=== PATIENT | male | born 1975 | race African-American/Black ===

== ENCOUNTER 2020-11-04 01:28 | Emergency (ER) | payer OTHER ==
[~2020-11-04 01:28] MED LIST: CARAFATE1 GM PO; ISOSORBIDE DINI10 MG PO; MAG-OXIDE 400M400 MG PO; MIRALAX17 GM PO; MYCOPHENOLATE500 MG PO; NYSTATIN SUSP1 ML/ML SSP; ONDANSETRON ODT4 MG PO; PRAVACHOL20 MG PO; PREDNISONE5 MG PO; PRILOSEC20 MG PO; PROTONIX 40MG T40 MG PO; ROBAXIN500 MG PO; SULFAMETHOXAZO1 EACH PO; TACROLIMUS PO; VALGANCICLOVIR450 MG PO
== END 2020-11-04 04:20 | disposition home or self-care (01) ==
LOC: FER 01:28
DX: S00.83XA Contusion of other part of head, initial encounter (principal); E11.9 Type 2 diabetes mellitus without complications; I10 Essential (primary) hypertension; Z94.1 Heart transplant status; Z88.0 Allergy status to penicillin; W51.XXXA Accidental striking against or bumped into by another person, initial encounter; Y92.89 Other specified places as the place of occurrence of the external cause
CPT/HCPCS: 70486; J2270; J2405

== ENCOUNTER 2021-08-17 10:06 | Emergency (ER) | payer OTHER ==
[2021-08-17 11:36] LABS: BILIRUBIN NEGATIVE (NEGATIVE); BLOOD TRACE-INTACT Ery/uL (NEGATIVE); CLARITY CLEAR (CLEAR); COLOR YELLOW (YELLOW); GLUCOSE (U) NORMAL (NORMAL); LEUKOCYTES NEGATIVE Leu/uL (NEGATIVE); NITRITE NEGATIVE (NEGATIVE); PROTEIN 3+ mg/dL (NEGATIVE); SPECIFIC GRAVITY >=1.030 (1.001-1.030); UROBILINOGEN 0.2 mg/dL (0.2-1.0)
[2021-08-17 12:08] LABS: BACTERIA TRACE; URINARY RBC RARE; URINARY WBC RARE
[2021-08-17] MEDS ORDERED: NORCO 5-325 TA1 EACH PO (13:31)
== END 2021-08-17 14:00 | disposition home or self-care (01) ==
LOC: FER 10:06
PROVIDERS: Emergency Medicine
DX: M54.16 Radiculopathy, lumbar region (principal); Z88.0 Allergy status to penicillin
CPT/HCPCS: 72131; 81001